=== PATIENT | female | born 1950 | race Two or more races ===

== ENCOUNTER 2019-12-03 20:32 | Emergency (ER) | payer OTHER ==
[~2019-12-03] VITALS: Ht 165.1 cm; Wt 49.9 kg
== END 2019-12-03 23:33 | disposition home or self-care (01) ==
LOC: ER 20:32
DX: I82.4Z1 Acute embolism and thrombosis of unspecified deep veins of right distal lower extremity (principal); M25.561 Pain in right knee; G89.11 Acute pain due to trauma

== ENCOUNTER 2019-12-04 10:57 | Outpatient (CLI) | payer OTHER | END 2019-12-04 11:00 | disposition home or self-care (01) | LOC: NUCLEAR 10:57 | DX: M79.604 Pain in right leg (principal); M79.661 Pain in right lower leg ==